=== PATIENT | male | born 1985 | race Caucasian/White ===

== ENCOUNTER 2024-11-20 18:01 | Inpatient (IN) | payer OTHER, SELFPAY ==
--- OUTSIDE RECORDS SUMMARY | 2024-11-19 12:59 | XMS_ITS | Encounter Summary ---
Author Organization [facility] Address [address] [place] [address] Care Team Providers Care Administrative Supervisor Name Role Phone Physician, Pcp Unknown Primary Care Provider Julianna vailable Reason for Visit * Reason Comments Detox Requesting detox Encounter Details Date Type Department Care Team (Late st Contact Info) Description 11/19/2024 12:59 PM EDT - 11/20/2024 7:06 PM EDT Emergency [facility] Emergency [address] [place] [id number] Kaden Reid MD [address] [place] [id number] Alice Magdaleno MD [address] [place] [id number] Dagoberto Burdick MD [address] [place] [address] Fredi Yu MD [address] [place] [id number] Discharge Disposition: Psychiatric Hospital Social History Tobacco Use Types Packs/Day Years Used Date Smoking Tobacco: Every Day Cigarettes Smokeless Tobacco: Never Tobacco Cessation:Ready to Q uit: Not Asked; Counseling Given: Not Answered Sex and Gender Information Value Date Recorded Sex Assigned at Not on file Legal Sex Male 5:44 AM EST Gender Identity Not on file Sexual Orientation Not on file documented as of this encounter Last Filed Vital Signs Vital Sign Reading Time Taken Comments Blood Pressure 114/88 11/20/2024 2:02 PM EDT Pulse 77 11/20/2024 2:02 PM EDT Temperature 36.7 C (98.1 F) 11/20/2024 2:02 PM EDT Respiratory Rate 18 11/20/2024 2:02 PM EDT Oxygen Saturation 100% 11/20/2024 2:02 PM EDT Inhaled Oxygen Concentration - - Weight 56.7 kg (125 lb) 11/19/2024 1:06 PM EDT Height 170.2 cm (5' 7 ) 11/19/2024 1:06 PM EDT Body Mass Index 19.58 11/19/2024 1:06 PM EDT documented in this encounter Functional Status * Are you deaf or do you have serious difficulty hearing? Answer Date of Assessment Author No 11/20/2024 2:40 PM EDT Avelina Quintana RN * Are you blind or do you have serious difficulty seeing, even when wearing glasses? Answer Date of Assessment Author No 11/20/2024 2:40 PM EDT Avelina Quintana RN * Do you have serious difficulty walking or climbing stairs? Answer Date of Assessment Author No 11/20/2024 2:40 PM EDT Avelina Quintana RN * Do you have serious difficulty dressing or bathing? Answer Date of Assessment Author No 11/20/2024 2:40 PM EDT Avelina Quintana RN * Because of a physical, mental, or emotional condition, do you have serious difficulty doing errandsalone such as visiting the doctor? Answer Date of Assessment Author No 11/20/2024 2:40 PM EDT Avelina Quintana RN * Calculated C-SSRS Risk Score (Lifetime/Recent) Answer Date of Assessment Author Moderate Risk 11/20/2024 7:30 AM EDT Domi Medina RN * [place] Suicide Severity Rating Scale (Screener/Recent Self-Report) Question Answer Date of Assessment Author 1. Wish to be (Past 1 Month) Yes 7:30 AM EDT Domi Medina RN 2. Non-Specific Active Suici tea Thoughts (Past 1 Month) Yes 11/20/2024 7:30 AM EDT Alton Medina, CLAUDE 3. Active Suicidal Ideation with any Methods (Not Plan) Without Intent to Act (Past 1 Month) No 11/20/2024 7:30 AM EDT Domi Medina, R N 4. Active Suicidal Ideation with Some Intent to Act, Without Specific Plan (Past 1 Month) No 11/20/2024 7:30 AM EDT Domi Medina R N 5. Active Suicidal Ideation with Specific Plan and Intent (Past 1 Month) No 11/20/2024 7:30 AM EDT Domi Medina R N 6. Suicidal Behavior (Lifetime) Yes 7:30 AM EDT Domi Medina, CLAUDE 6. Suicidal Behavior (3 Months) No 1:04 PM EDT Emely Salgado RN documented as of this encounter Mental Status * Because of a physical, mental, or emotional condition, do you have serious difficulty concentrating, remembering, or making decisions? (5 years old or older) Answer Entry Date Author No 11/20/2024 2:40 PM EDT Avelina Quintana RN documented in this encounter Discharge Disposition Disposition Code Departure Means Destination Comment s [facility] documented in this encounter Progress Notes * Manjeet Quintana RN - 11/20/2024 12:35 PM EDT Report called to Lisha RN at [facility], she requests that we call their unit at [phone] when the patient has been picked up. 1250: Unable to reserve transportation from [place] until 1730, transport booked and [facility] aware of this new time. * Fatemeh Estrada - 11/20/2024 11:53 AM EDT BED FOUND - Patient accepted to [facility], M5, by DR Grover for today 11/20/24 ; ETAset for 4pm * Dagoberto Burdick MD - 11/20/2024 10:09 AM EDT Etienne Key This patient was signed out to me by ED physician, Dr Magdaleno. Briefly, the patient presented to the ED with thoughts of self harm in the setting of polysubstance abuse. Signed out to me pending psych facility placement. EKG/Rhythm strip interpretation: normal sinus rhythm, HR 83bpm, narrow complex, no pathologic TWI, no significant ST segment deviation, no ectopy Reassessment: Accepted at [facility] * Alice Magdaleno MD - 11/20/2024 3:16 AM EDT This patient's care was signed out to me by the offgoing provider. Please see her/his note for further details regarding initial presentation, history of present illness, physical exam, and medical decision making. At time of signout, the following was pending: ED Course as of 11/20/24 0852 MonNov 20, 2024 0239 SO from : Hx of polysubstance abuse had suicidal ideas but no plan - wants to stop drug use. Medically cleared - however admission to psych hospital. Pending placement [EK] 0636 No acute needs during my shift. Patient's care was handed over to the oncoming provider. [EK] ED Course User Index [EK] Alice Magdaleno MD No orders to display Labs Reviewed ACETAMINOPHEN LEVEL - Abnormal Result Value Acetaminophen Level <2.0 (*) SALICYLATE LEVEL - Abnormal Salicylate Level 1.8 (*) DRUG ABUSE SCREEN 8A PANEL, URINE - Abnormal Amphetamine Screen, Ur Negative Barbiturate Screen, Ur Negative Benzodiazepine Screen, Ur Negative Cocaine Screen, Ur Positive (*) Opiate Screen, Ur Negative Cannabinoid (THC) Screen, Ur Positive (*) Oxycodone Screen, Ur Negative Fentanyl, Ur Negative Narrative: Assay cutoffs: Amphetamines 1000 ng/mL Barbiturates 200 ng/mL Benzodiazepines 200 ng/mL Cocaine 300 ng/mL Fentanyl 1 ng/mL Opiates 300 ng/mL Oxycodone 100 ng/mL THC 50 ng/mL Semi-quantitative assay for screening purposes only. Unconfirmed screening result should not be used for non-medical purposes. *ALTERNATE METHOD CONFIRMATION DONE UPON REQUEST ONLY* CBC WITH AUTO DIFFERENTIAL - Abnormal WBC 12.5 (*) RBC 5.10 Hemoglobin 14.3 Hematocrit 42.1 MCV 83.2 MCH 28.3 MCHC 34.0 RDW 12.5 Platelets 346 MPV 10.2 NRBC 0.0 NRBC Absolute 0.00 Neutrophils Relative 80.3 Lymphocytes Relative 14.7 Monocytes Relative 3.8 Eosinophils Relative 0.6 Basophils Relative 0.4 Immature Granulocytes Relative 0.2 Neutrophils Absolute 10.01 (*) Lymphocytes Absolute 1.83 Monocytes Absolute 0.48 Eosinophils Absolute 0.08 Basophils Absolute 0.05 Immature Granulocytes Absolute 0.03 COMPREHENSIVE METABOLIC PANEL - Normal Sodium 138 Potassium 4.3 Chloride 106 CO2 27 Anion Gap 5 Glucose 85 BUN 9 Creatinine 0.94 eGFR 106 BUN/Creatinine Ratio 9.6 Calcium 9.1 AST (SGOT) 18 ALT (SGPT) 19 Alkaline Phosphatase 54 Total Protein 6.8 Albumin 3.7 Total Bilirubin 1.0 ETHANOL - Normal Ethanol Level <3 BUPRENORPHINE SCREEN, URINE - Normal Buprenorphine Screen Urine Negative Narrative: Assay cutoff 5 ng/mL Semi-quantitative assay for screening purposes only. Unconfirmed screening result should not be used for non-medical purposes. *ALTERNATE METHOD CONFIRMATION DONE UPON REQUEST ONLY* PHENCYCLIDINE, URINE - Normal PCP Scrn, Ur Negative METHADONE SCREEN, URINE - Normal Methadone Screen, Urine Negative CBC AND DIFFERENTIAL Narrative: The following orders were created for panel order CBC and differential. Procedure Abnormality Status --------- ------ CBC auto differential[[id number]] Abnormal Final result Please view results for these tests on the individual orders. Clinical Impression(s): Final diagnoses: None Data Unavailable Previous Medications No medications on file * Emely Salgado RN - 11/19/2024 12:59 PM EDT Patient GISELA from home for attempt to detox from crack, pills and weed . States he used crack 35-40 minutes ago . Per patient to EMS, seeking detox. * SNEHA Noble - 11/19/2024 12:53 PM EDT HPI Chief Complaint Patient presents with Detox Requesting detox HPI history of polysubstance abuse presenting requesting detox from crack pills and weed stating helast used about 30 minutes prior to arrival. Also reporting suicidal ideations. Denies specific plan. Denies the drugs were and attempt at suicide. Denying HI hallucinations. No injuries or medical complaint. [place] Coma Scale Score: 15 Patient History Medical History[1] Surgical History[2] Family History[3] Social History Tobacco Use Smoking status: Every Day Types: Cigarettes Smokeless tobacco: Never Substance Use Topics Alcohol use: Not on file Drug use: Yes Types: Crack cocaine Comment: Last use 40 minutes ago Review of Systems Review of Systems Physical Exam ED Triage Vitals [11/19/24 1317] Temp Heart Rate Resp BP 36.8 ??C (98.2 ??F) 88 18 (!) 146/84 SpO2 Temp Source Heart Rate Source Patient Position 98 % Oral Left;Radial Lying BP Location FiO2 (%) Right arm;Upper -- Physical Exam GENERAL: Well developed, no acute distress HEENT: Normocephalic and atraumatic, EOMI NECK: Supple, trachea is midline RESP: No respiratory distress CARDIOVASCULAR: Regular rate GASTROINTESTINAL: Abdomen is soft, non distended MUSCULOSKELETAL: ROM normal, no obvious acute deformities SKIN: Warm and dry NEUROLOGIC: At baseline, no acute focal deficits PSYCHIATRIC: Calm and cooperative ED Course & MDM Medical Decision Making Encounter for polysubstance abuse seeking detox and psychiatric evaluation with suicidal ideations consideration for inpatient versus outpatient management Vital signs reviewed Pulse oximetry reviewed and found to be > 94% on room air Physical exam as above Nursing notes reviewed CBC negative for significant leukocytosis or anemia requiring blood transfusion Metabolic panel negative for significant electrolyte abnormality with no signs of acute organ dysfunction UA negative for obvious infection or gross blood Patient medically cleared Evaluated by crisis team who recommends inpatient services on an involuntary basis Care signed out to oncoming provider pending placement Procedures [1] History reviewed. No pertinent past medical history. [2] History reviewed. No pertinent surgical history. [3] No family history on file. SNEHA Noble 11/19/241813 Cosigned by Tenzin Gusman MD at 11/19/2024 9:58 PM EDT documented in this encounter Consult Notes * Maximo Ahmadi - 11/19/2024 3:27 PM EDTAssociated Order(s): IP CONSULT TO ADMISSIONS DEAN Images from the original note were not included. Behavioral Health Services - Crisis Assessment Important times Time of arrival: 12:59 Time of referral: 14:06 Time of readiness: 14:11 Time assessment started: 14:50 Time of disposition: 15:50 Location: Emergency Room (ER) Consulted case with: Varsha Ragland LCSW Insurance information: Insurance: Inpatient Services Only - [facility] Verified by: [facility] [place] - Maximo Ahmadi Reason for Consultation / Presenting Problem: Etienne Key is being seen today for a consultive service at the request of No att. providers found to assess risk and identify appropriate level of care. Patient initially arrived requesting detox but mentioned SI to the nurse, prompting a crisis evaluation. During assessment, patient reported that he attempted to kill himself last year by overdosing on fentanyl and that is his current plan. Patient discussed multiple life stressors including being unhoused and not being able to see his children. He reported that he is attempting to cope with his mental health by using substances. Patient expressed that he does not want to keep living like this and wants help. He reported that if he were to discharge he would obtain substances and attempt tooverdose. Patient reported that he thinks about hurting/killing people who have harmed him in the past but does not have any plan or immediate intent. He denied AH/VH. History of Present Illness: Etienne is a 39 y.o. male with Chief Complaint Patient presents with Detox Requesting detox Social/Educational History: Guardian - if Yes, provide contact information: No Anita Status: No State Agency Involvement: None Nathanael's Order: No Marital Status: Single Alternative Placement Details: None Living Situation for patient: Homeless - Patient reported that he is couch hopping. Household Members/Age: Patient is unhoused and does not live with anybody. Friendships/Family/Social Peer Support/Relationships: Patient reported to have a good relationship with his step-brother and sister. Highest level of education: High school Comments (Include Learning Needs): None Occupation: Unemployed Employment/Extracurricular Activities/Hobbies: Unknown Limitations of Daily Activities: None Strengths/Supports: Patient is help-seeking. Patient is able to access his basic needs. Patient is able to advocate for himself. Collaterals, contact information, and engagement level: Therapist: None reported Psychiatrist: None reported PCP: Unknown Family: Step-brother, Etienne SisterBre: - [facility] left voicemail requesting a call back. Other: None reported Mental Status Speech: WNL Eye Contact: WNL Motor Activity: Slowed Mood: Depressed Affect: Flat Sleep: Poor Appetite: Fair Memory: WNL Attention / Concentration: Mild Impairment Behavior: Cooperative and Calm Appearance: Hallucinations: None Delusions: None Thought Content: WNL SI: Presence HI: Presence - Vague/Passive Thought Process: WNL Orientation Impairment: None Insight: Fair Judgment: Fair Impulse Control: Poor Substance Use History (Including family history): Patient reported that he began using substances at 12 years old. He stated that he uses crack and sniffs cocaine daily - 120. Patient also reported to drinking alcohol socially. Patient reported that his mother's side of the family tends to use crack and heroin. Utox Results: Utox pending. BAL was normal. Substance Use Treatment History: Patient denied substance use treatment history. Mental Health Treatment History: Outpatient Mental Health Treatment: Patient denied current and history of outpatient mental health treatment. Previous or Current Psychological Diagnosis: Patient reported he has never had psychological diagnoses. Prior Psychiatric Hospitalizations/Residential Treatment Facilities: Patient denied history of psychiatric hospitalizations. Other Comments Regarding Mental Health Treatment History: None Mental Health Concerns in Family: Patient reported that he does not know as he was taken out of hismother's care at 4 years old. Trauma History: Patient was taken out of care of his family of origin at 4 years old. He is currently unable to seehis children and is using substances to cope. Patient is unhoused. Medications: Scheduled Meds: MEDSSCHEDULED[1] Continuous Infusions: MEDSCONTINUOUS[2] PRN Meds: MEDSPRN[3] Risk Assessment: Self-Harm: Past and With suicidal intent Suicidal Behavior: Past, Current, Ideation, Plan, and Intent Homicidal Behavior: None Physical Assault: None Physical Aggression: None Property Damage: None Verbal Aggression: None Family history of suicide: None reported Protective Factors: Patient is help-seeking. Patient is able to access his basic needs. Patient is able to advocate for himself. Risk Factors: Patient continues to use substances. Patient has unresolved trauma. Patient does not have outpatient mental health support. Patient is unhoused. Patient reported to having tried to overdose on fentanyl last year. Suicide Risk: Based on patient's history and current presentation, their level of risk for intentional lethal harm is considered High Safety Plan Completed: no No safety plan completed due to patient being a bed search. Interventions: Risk/crisis, active listening, empathetic listening, support Response to interventions: Patient was cooperative, engaged, and aligned with speaking with [facility]. DSM-5TR Diagnosis: F32.9 Unspecified Depressive Disorder F14.20 Stimulant Use Disorder, Cocaine, Moderate Plan: Based on the information above, patient would benefit from an involuntary inpatient psychiatric admission for safety and containment, mood stabilization, diagnostic evaluation, medication evaluation,therapeutic milieu, and coordination with outpatient and community supports. Patient would also benefit from stepping down to [facility] to work on his substance use. Recommendations were discussed with requesting provider. It was a pleasure to assist Etienne Key here at [facility]. This report is written and finalized by: Maximo Ahmadi Behavioral Health Specialist [facility] (Tel): [phone] / : [phone] [1] [2] [3] documented in this encounter Plan of Treatment Pending Results Name Type Priority Associated Diagnoses Date /Time ECG 12 lead ECG STAT 11/20/2024 10 :35 AM EDT documented as of this encounter Procedures Procedure Name Priority Date/Time Associated Diagnosis Comments ECG 12-LEAD STAT 11/20/2024 10:35 AM EDT CBC WITH AUTO DIFFERENTIAL STAT 11/19/2024 2:05 PM EDT CBC AND DIFFERENTIAL STAT 11/19/2024 2:05 PM EDT ETHANOL STAT 11/19/2024 2:05 PM EDT ACETAMINOPHEN LEVEL STAT 11/19/2024 2 :05 PM EDT SALICYLATE LEVEL STAT 11/19/2024 2:05 PM EDT COMPREHENSIVE METABOLIC PANEL STAT 11/19/2024 2:05 PM EDT DRUG ABUSE SCREEN 8A PANEL, URINE STAT 11/19/2024 1:58 PM EDT BUPRENORPHINE SCREEN, URINE STAT 11/19/2024 1:58 PM EDT METHADONE SCREEN, URINE STAT 11/19/2024 1:58 PM EDT PHENCYCLIDINE, URINE STAT 11/19/2024 1:58 PM EDT documented in this encounter Results * (ABNORMAL) CBC auto differential (11/19/2024 2:05 PM EDT) [facility] WBC 12.5(H) 4.8 - 10.8 K/mcL LAB HEMETOLOGY METHOD 11/19/2024 2:59 PM EDT [facility] RBC 5.10 4.50 - 5.50 M/mcL LAB HEMETOLOGY METHOD 11/19/2024 2:59 PM EDT [facility] Hemoglobin 14.3 13.5 - 17.5 g/dL LAB HEMETOLOGY METHOD 11/19/2024 2:59 PM EDT [facility] Hematocrit 42.1 42.0 - 54.0 % LAB HEMETOLOGY METHOD 11/19/2024 2:59 PM EDT [facility] MCV 83.2 79.0 - 98.0 FL LAB HEMETOLOGY METHOD 11/19/2024 2:59 PM EDT [facility] MCH 28.3 27.0 - 32.0 pcg LAB HEMETOLOGY METHOD 11/19/2024 2:59 PM EDT [facility] MCHC 34.0 32.0 - 37.0 g/dL LAB HEMETOLOGY METHOD 11/19/2024 2:59 PM EDT [facility] RDW 12.5 11.0 - 15.0 % LAB HEMETOLOGY METHOD 11/19/2024 2:59 PM EDT [facility] Platelets 346 130 - 400 K/mcL LAB HEMETOLOGY METHOD 11/19/2024 2:59 PM EDT [facility] MPV 10.2 7.0 - 11.0 FL LAB HEMETOLOGY METHOD 11/19/2024 2:59 PM EDT [facility] NRBC 0.0 <1.0 % LAB HEMETOLOGY METHOD 11/19/2024 2:59 PM EDT [facility] NRBC Absolute 0.00 <0.10 K/mcL LAB HEMETOLOGY METHOD 11/19/2024 2:59 PM EDT [facility] Neutrophils Relative 80.3 % LAB HEMETOLOGY METHOD 11/19/2024 2:59 PM EDT [facility] Lymphocytes Relative 14.7 % LAB HEMETOLOGY METHOD 11/19/2024 2:59 PM EDT [facility] Monocytes Relative 3.8 % [facility] Eosinophils Relative 0.6 % LAB HEMETOLOGY METHOD 11/19/2024 2:59 PM [facility] Basophils Relative 0.4 % LAB HEMETOLOGY METHOD 11/19/2024 2:59 PM EDT [facility] Immature Granulocytes Relative 0.2 % LAB HEMETOLOGY METHOD 11/19/2024 2:59 PM EDT [facility] Neutrophils Absolute 10.01(H) 1.50 - 7.00 K/mcL LAB HEMETOLOGY METHOD 11/19/2024 2:59 PM EDT [facility] Lymphocytes Absolute 1.83 1.00 - 5.00 K/mcL LAB HEMETOLOGY METHOD 11/19/2024 2:59 PM EDT [facility] Monocytes Absolute 0.48 0.20 - 1.00 K/mcL LAB HEMETOLOGY METHOD 11/19/2024 2:59 PM EDT [facility] Eosinophils Absolute 0.08 0.00 - 0.50 K/[facility] HEMETOLOGY METHOD 11/19/2024 2:59 PM EDT [facility] Basophils Absolute 0.05 0.00 - 0.20 K/[facility] LAB HEMETOLOGY METHOD 11/19/2024 2:59 PM EDT [facility] Immature Granulocytes Absolute 0.03 0.00 - 0.03 K/[facility] LAB HEMETOLOGY METHOD 11/19/2024 2:59 PM EDT [facility] Blood Venous blood specimen / Unknown Venipuncture / Unknown 11/19/2024 2:05 PM EDT 11/19/2024 2:48 PM EDT us Tenzin Gusman MD LAB BLOOD ORDERABLES Final Resul t Performing Organization Address [facility]/ZIP Co de Phone Number [facility] [address] [place] [address], [place] [phone] * (ABNORMAL) Salicylate level (11/19/2024 2:05 PM EDT) Salicylate Level 1.8(L) 2.0 - 29.0 mg/dL LAB CHEMISTRY METHOD 11/19/2024 3:20 PM EDT [facility] Blood Venous blood specimen / Unknown Venipuncture / Unknown 11/19/2024 2:05 PM EDT 11/19/2024 2:48 PM EDT us Tenzin Gusman MD LAB BLOOD ORDERABLES Final Resul t Performing Organization Address City/[facility]/ZIP Co de Phone Number [facility] [address] [place] [address], [place] [phone] * (ABNORMAL) Acetaminophen level (11/19/2024 2:05 PM EDT) Acetaminophen Level <2.0(L) 10.0 - 30.0 mcg/mL LAB CHEMISTRY METHOD 11/19/2024 3:22 PM EDT [facility] Blood Venous blood specimen / Unknown Venipuncture / Unknown 11/19/2024 2:05 PM EDT 11/19/2024 2:48 PM EDT us Tenzin Gusman MD LAB BLOOD ORDERABLES Final Resul t Performing Organization Address [facility]/ZIP Co de Phone Number [facility] [address] [place] [address], [place] [phone] * Ethanol (11/19/2024 2:05 PM EDT) Ethanol Level <3 0 - 10 mg/dL LAB CHEMISTRY METHOD 11/19/2024 3:20 PM EDT [facility] Blood Venous blood specimen / Unknown Venipuncture / Unknown 11/19/2024 2:05 PM EDT 11/19/2024 2:48 PM EDT us Tenzin Gusman MD LAB BLOOD ORDERABLES Final Resul t Performing Organization Address [facility]/ZIP Co de Phone Number [facility] [address] [place] [address], [place] [phone] * Comprehensive metabolic panel (11/19/2024 2:05 PM EDT) Sodium 138 133 - 145 mmol/L LAB CHEMISTRY METHOD 11/19/2024 4:08 PM EDT [facility] Potassium 4.3 3.5 - 5.5 mmol/L LAB CHEMISTRY METHOD 11/19/2024 4:08 PM EDT [facility] Chloride 106 96 - 110 mmol/L LAB CHEMISTRY METHOD 11/19/2024 4:08 PM EDT [facility] CO2 27 21 - 32 mmol/L LAB CHEMISTRY METHOD 11/19/2024 4:08 PM [facility] Anion Gap 5 3 - 11 LAB CHEMISTRY METHOD 11/19/2024 4:08 PM [facility] Glucose 85 70 - 100 mg/dL LAB CHEMISTRY METHOD 11/19/2024 4:08 PM [facility] BUN 9 5 - 25 mg/dL LAB CHEMISTRY METHOD 11/19/2024 4:08 PM [facility] Creatinine 0.94 0.70 - 1.30 mg/dL LAB CHEMISTRY METHOD 11/19/2024 4:08 PM [facility] eGFR 106 >=60 mL/min/1. 73m2 LAB CHEMISTRY METHOD 11/19/2024 4:08 PM [facility] Comment:Calculation based on the Chronic Kidney Disease Epidemiology Collaboration (CKD-EPI) equation refit without adjustment for race. BUN/Creatinine Ratio 9.6 LAB CHEMISTRY METHOD 11/19/2024 4:08 PM [facility] Calcium 9.1 8.5 - 10.5 mg/dL LAB CHEMISTRY METHOD 11/19/2024 4:08 PM [facility] AST (SGOT) 18 10 - 42 unit/L LAB CHEMISTRY METHOD 11/19/2024 4:08 PM [facility] ALT (SGPT) 19 10 - 60 unit/L LAB CHEMISTRY METHOD 11/19/2024 4:08 PM [facility] Alkaline Phosphatase 54 42 - 121 unit/L LAB CHEMISTRY METHOD 11/19/2024 4:08 PM [facility] Total Protein 6.8 6.0 - 8.0 g/dL LAB CHEMISTRY METHOD 11/19/2024 4:08 PM [facility] Albumin 3.7 3.2 - 5.0 g/dL LAB CHEMISTRY METHOD 11/19/2024 4:08 PM [facility] Total Bilirubin 1.0 0.0 - 1.4 mg/dL LAB CHEMISTRY METHOD 11/19/2024 4:08 PM EDT [facility] Blood Venous blood specimen / Unknown Venipuncture / Unknown 11/19/2024 2:05 PM EDT 11/19/2024 2:48 PM EDT us Tenzin Gusman MD LAB BLOOD ORDERABLES Final Resul t Performing Organization Address [facility] Co de Phone Number [facility] [address], [place] , [place] [phone] * Methadone, urine (11/19/2024 1:58 PM EDT) Methadone Screen, Urine Negative Negative LAB CHEMISTRY METHOD 11/19/2024 4:12 PM EDT [facility] Comment: Assay cutoff 300 ng/mL Semi-quantitative assay for screening purposes only. Unconfirmed screening result should not be used for non-medical purposes. *ALTERNATE METHOD CONFIRMATION DONE UPON REQUEST ONLY* Urine Urine specimen obtained by clean catch procedure / Unknown Non-blood Collection / Unknown 11/19/2024 1:58 PM EDT 11/19/2024 2:49 PM EDT us Tenzin Gusman MD LAB URINE ORDERABLES Final Resul t Performing Organization Address [facility] Co de Phone Number [facility] [address] [place] [address], [place] [phone] * Phencyclidine, urine (11/19/2024 1:58 PM EDT) PCP Scrn, Ur Negative Negative LAB CHEMISTRY METHOD 11/19/2024 4:09 PM EDT [facility] Comment: Assay cutoff 25 ng/mL Semi-quantitative assay for screening purposes only. Unconfirmed screening result should not be used for non-medical purposes. *ALTERNATE METHOD CONFIRMATION DONE UPON REQUEST ONLY* Urine Urine specimen obtained by clean catch procedure / Unknown Non-blood Collection / Unknown 11/19/2024 1:58 PM EDT 11/19/2024 2:49 PM EDT us Tenzin Gusman MD LAB URINE ORDERABLES Final Resul t Performing Organization Address [facility] de Phone Number [facility] [address] [place] [address], [place] [phone] * Buprenorphine screen, urine (11/19/2024 1:58 PM EDT) [facility] Buprenorphine Screen Urine Negative Negative LAB CHEMISTRY METHOD 11/19/2024 4:09 PM EDT [facility] Urine Urine specimen obtained by clean catch procedure / Unknown Non-blood Collection / Unknown 11/19/2024 1:58 PM EDT 11/19/2024 2:49 PM EDT Narrative [facility] - 11/19/2024 4:09 PM EDT Assay cutoff 5 ng/mL Semi-quantitative assay for screening purposes only. Unconfirmed screening result should not be used for non-medical purposes. *ALTERNATE METHOD CONFIRMATION DONE UPON REQUEST ONLY* us Tenzin Gusman MD LAB URINE ORDERABLES Final Resul t Performing Organization Address [facility] de Phone Number [facility] [address] [place] [address], [place] [phone] * (ABNORMAL) Drug abuse screen 8a panel, urine (11/19/2024 1:58 PM EDT) [facility] Amphetamine Screen, Ur Negative Negative LAB CHEMISTRY METHOD 4:09 PM EDT [facility] Comment:Certain OTC medicati ons containing ephedrine, phenylephrine, pseudoephedrine and phenylpropanolamine can cause false positive results. Barbiturate Screen, Ur Negative Negative LAB CHEMISTRY METHOD 5 4:09 PM EDT [facility] Benzodiazepine Screen, Ur Negative Negative LAB CHEMISTRY METHOD 4:09 PM EDT [facility] Cocaine Screen, Ur Positive(A ) Negative LAB CHEMISTRY METHOD 5 4:09 PM EDT [facility] Opiate Screen, Ur Negative Negative LAB CHEMISTRY METHOD 5 4:09 PM T [facility] Cannabinoid (THC) Screen, Ur Positive(A ) Negative LAB CHEMISTRY METHOD 5 4:09 PM EDT [facility] Comment:Specimens from patie nts taking pantoprazole sodium (Protonix) have been shown to produce false positive results. Oxycodone Screen, Ur Negative Negative LAB CHEMISTRY METHOD 5 4:09 PM EDT [facility] Fentanyl, Ur Negative Negative LAB CHEMISTRY METHOD 5 4:09 PM [facility] Urine Urine specimen obtained by clean catch procedure / Unknown Non-blood Collection / Unknown 11/19/2024 1:58 PM EDT 11/19/2024 2:49 PM EDT Narrative [facility] - 11/19/2024 4:09 PM EDT Assay cutoffs: Amphetamines 1000 ng/mL Barbiturates 200 ng/mL Benzodiazepines 200 ng/mL Cocaine 300 ng/mL Fentanyl 1 ng/mL Opiates 300 ng/mL Oxycodone 100 ng/mL THC 50 ng/mL Semi-quantitative assay for screening purposes only. Unconfirmed screening result should not be used for non-medical purposes. *ALTERNATE METHOD CONFIRMATION DONE UPON REQUEST ONLY* us Tenzin Gusman MD LAB URINE ORDERABLES Final Resul t [facility]) [facility] [address] [place] [address], documented in this encounter Visit Diagnoses Not on filedocumented in this encounter Orders Diet Count Last Ordered Date First Orde red Date ADULT DIET 1 11/20/2024 Consult Count Last Ordered Date First Orde red Date IP CONSULT TO ADDICTION MEDICINE 1 11/20/19 25 IP CONSULT TO ADMISSIONS DEAN 1 11/19/2024 Precaution Count Last Ordered Date First Orde red Date SUICIDE PRECAUTIONS 1 11/19/2024 Privilege Level Count Last Ordered Date First O rdered Date PATIENT WAFER POLISHER 1 11/19/2024 documented in this encounter Care Teams Administrative Supervisor Relationship Specialty Start Date End Date Physician, Pcp Unknown PCP - General 09/26/24 documented as of this encounter
[2024-11-20 18:21] VITALS: BP 123/91; PULSE 64; RESP 18; TEMP 37.1; O2SAT 99
[2024-11-20 18:22] VITALS: BMI 18.7
--- OUTSIDE RECORDS SUMMARY | 2024-11-20 19:36 | XMS_ITS | Patient Health Record ---
Author Organization [facility] Address [address] [place] [address] Care Team Providers Care Fresh Work Inspector Name Role Phone NO, PCP Primary Care Provider [facility] Unavailable [phone] Reason For Referral No Information Plan Of Treatment No Information Insurance Providers Payer Name Payer Address Payer Phone Subscriber Number Group Number Insured Name Patient Relationship to Insured Coverage Start Date Coverage End Date Insurance Pending [address] [place] [address] Etienne Key Self - patient is the insured 2
--- OUTSIDE RECORDS SUMMARY | 2024-11-20 19:36 | XMS_ITS | Clinical Summary ---
Author Organization [facility] Address [address] [place] [address] Phone Care Team Providers Care Res Counselor Name Role Phone Physician, Pcp Unknown Primary Care Provider Julianna vailable Allergies No known active allergies Medications No known medications Active Problems No known active problems Encounters Date Type Department Care Team Description 11/19/2024 12:59 PM EDT - 11/20/2024 7:06 PM EDT Emergency [facility] Emergency [address] [place] [id number] Kaden Reid MD Kokkinos, Erika, MD Wyman, Tim, MD Amardey-Wellingto n, Aaron, MD Discharge Disposition: [facility] 09/26/2024 8:22 AM EDT - 09/26/2024 9:02 AM EDT Emergency [facility] Emergency [address] [place] [phone] Dysuria (Primary Dx) Discharge Disposition: Home or Self Care from Last 3 Months Social History Tobacco Use Types Packs/Day Years Used Date Smoking Tobacco: Every Day Cigarettes Smokeless Tobacco: Never Tobacco Cessation:Ready to Q uit: Not Asked; Counseling Given: Not Answered Sex and Gender Information Value Date Recorded Sex Assigned at Not on file Legal Sex Male 5:44 AM EST Gender Identity Not on file Sexual Orientation Not on file Obstetrics History Last Filed Vital Signs Vital Sign Reading [...] Mass Index 19.58 11/19/2024 1:06 PM EDT Plan of Treatment Health Maintenance Due Date Last Done Comments Pneumococcal Vaccine: Pediatrics (0 to 5 Years) and At-Risk Patients (6 to 49 Years) (1 of 2 - PCV) 2004 HPV Vaccines (1 - 3-dose SCDM series) 2012 Depression Screening 02/07/2024 Cholesterol Screening (Lipid Panel) 09/26/2024 HIV Screening 09/26/2024 Hepatitis C Screening 09/26/2024 Social Influencers of Health Screening 09/26/2024 COVID-19 Vaccine ( - season) 2024 Influenza Vaccine (#1) 2024 DTaP,Tdap,and Td Vaccines (8 - Td or Tdap) 12/03/2027 12/02/2017, 09/18/2000, 07/04/1991, Additional history exists RSV Immunization Adult Patients (1 - 1-dose 75+ series) 2060 HIB Vaccines Completed 02/02/1987 MMR Vaccines Completed 07/04/1991, 09/02/1986 IPV Vaccines Completed 09/18/2000, 06/07, 07/04/1987, Additional history exists Hepatitis B Vaccines Completed 01/11/2002, 12/27/2000, 09/18/2000 Hepatitis A Vaccines Aged Out No long er eligible based on patient's age to complete this topic Meningococcal ACWY Vaccine Aged Out N o longer eligible based on patient's age to complete this topic Meningococcal B Vaccine Aged Out No l onger eligible based on patient's age to complete this topic RSV Immunization Patients Under 20 months Aged Out No longer eligible based on patient's age to complete this topic Varicella Vaccines Aged Out No longer eligible based on patient's age to complete this topic Procedures Procedure Name Priority Date/Time Associated Diagnosis Comments ECG 12-LEAD STAT 11/20/2024 10:35 AM EDT CBC WITH AUTO DIFFERENTIAL STAT 11/19/2024 2:05 PM EDT SALICYLATE LEVEL STAT 11/19/2024 2:05 PM EDT ACETAMINOPHEN LEVEL STAT 11/19/2024 2 :05 PM EDT ETHANOL STAT 11/19/2024 2:05 PM EDT COMPREHENSIVE METABOLIC PANEL STAT 11/19/2024 2:05 PM EDT CBC AND DIFFERENTIAL STAT 11/19/2024 2:05 PM EDT METHADONE SCREEN, URINE STAT 11/19/2024 1:58 PM EDT PHENCYCLIDINE, URINE STAT 11/19/2024 1:58 PM EDT BUPRENORPHINE SCREEN, URINE STAT 11/19/2024 1:58 PM EDT DRUG ABUSE SCREEN 8A PANEL, URINE STAT 11/19/2024 1:58 PM EDT HARDY URINE CULTURE TUBE STAT 09/26/2024 8:27 AM EDT URINALYSIS WITH REFLEX MICROSCOPIC AND CULTURE STAT 09/26/2024 8:27 AM EDT URINALYSIS WITH REFLEX MICROSCOPIC AND CULTURE STAT 09/26/2024 8:27 AM EDT CULTURE URINE STAT 09/26/2024 8:27 AM EDT CHLAMYDIA TRACHOMATIS AND NEISSERIA GONORRHOEAE PCR STAT 09/26/2024 8:27 AM EDT from Last 3 Months Results * (ABNORMAL) CBC auto differential (11/19/2024 2:05 PM EDT) [facility] Signature WBC 12.5(H) 4.8 - 10.8 K/[facility] LAB HEMETOLOGY METHOD 11/19/2024 2:59 PM EDT [facility] RBC 5.10 4.50 - 5.50 M/mcL LAB HEMETOLOGY METHOD 11/19/2024 2:59 PM EDT [facility] Hemoglobin 14.3 13.5 - 17.5 g/dL LAB HEMETOLOGY METHOD 11/19/2024 2:59 PM EDT [facility] Hematocrit 42.1 42.0 - 54.0 % LAB HEMETOLOGY METHOD 11/19/2024 2:59 PM EDT [facility] MCV 83.2 79.0 - 98.0 FL LAB HEMETOLOGY METHOD 11/19/2024 2:59 PM EDT [facility] MCH 28.3 27.0 - 32.0 pcg LAB HEMETOLOGY METHOD 11/19/2024 2:59 PM EDT [facility] MCHC 34.0 32.0 - 37.0 g/dL LAB HEMETOLOGY METHOD 11/19/2024 2:59 PM EDT [facility] RDW 12.5 11.0 - 15.0 % LAB HEMETOLOGY METHOD 11/19/2024 2:59 PM EDT [facility] Platelets 346 130 - 400 K/mcL LAB HEMETOLOGY METHOD 11/19/2024 2:59 PM EDT [facility] MPV 10.2 7.0 - 11.0 FL LAB HEMETOLOGY METHOD 11/19/2024 2:59 PM EDT [facility] NRBC 0.0 <1.0 % LAB HEMETOLOGY METHOD 11/19/2024 2:59 PM EDT [facility] NRBC Absolute 0.00 <0.10 K/mcL LAB HEMETOLOGY METHOD 11/19/2024 2:59 PM EDT [facility] Neutrophils Relative 80.3 % LAB HEMETOLOGY METHOD 11/19/2024 2:59 PM EDT [facility] Lymphocytes Relative 14.7 % LAB HEMETOLOGY METHOD 11/19/2024 2:59 PM EDT [facility] Monocytes Relative 3.8 % LAB HEMETOLOGY METHOD 11/19/2024 2:59 PM EDT [facility] Eosinophils Relative 0.6 % LAB HEMETOLOGY METHOD 11/19/2024 2:59 PM EDT [facility] Basophils Relative 0.4 % LAB HEMETOLOGY METHOD 11/19/2024 2:59 PM EDT [facility] Immature Granulocytes Relative 0.2 % LAB HEMETOLOGY METHOD 11/19/2024 2:59 PM EDT [facility] Neutrophils Absolute 10.01(H) 1.50 - 7.00 K/mcL LAB HEMETOLOGY METHOD 11/19/2024 2:59 PM EDT [facility] Lymphocytes Absolute 1.83 1.00 - 5.00 K/mcL LAB HEMETOLOGY METHOD 11/19/2024 2:59 PM EDT [facility] Monocytes Absolute 0.48 0.20 - 1.00 K/mcL LAB HEMETOLOGY METHOD 11/19/2024 2:59 PM EDT [facility] Eosinophils Absolute 0.08 0.00 - 0.50 K/mcL LAB HEMETOLOGY METHOD 11/19/2024 2:59 PM EDT [facility] Basophils Absolute 0.05 0.00 - 0.20 K/mcL LAB HEMETOLOGY METHOD 11/19/2024 2:59 PM EDT [facility] Immature Granulocytes Absolute 0.03 0.00 - 0.03 K/mcL LAB HEMETOLOGY METHOD 11/19/2024 2:59 PM EDT [facility] Blood Venous blood specimen / Unknown Venipuncture / Unknown 11/19/2024 2:05 PM EDT 11/19/2024 2:48 PM EDT us Tenzin Gusman MD LAB BLOOD ORDERABLES Final Resul t [facility] [address] [place] [address], [place] [phone] * Ethanol (11/19/2024 2:05 PM EDT) Ethanol Level <3 0 - 10 mg/dL LAB CHEMISTRY METHOD 11/19/2024 3:20 PM EDT [facility] Blood Venous blood specimen / Unknown Venipuncture / Unknown 11/19/2024 2:05 PM EDT 11/19/2024 2:48 PM EDT us Tenzin Gusman MD LAB BLOOD ORDERABLES Final Resul t Performing Organization Address City/[facility]/ZIP Co de Phone Number [facility] [address] [place] [address], [place] [phone] * (ABNORMAL) Acetaminophen level (11/19/2024 2:05 PM EDT) Acetaminophen Level <2.0(L) 10.0 - 30.0 mcg/mL LAB CHEMISTRY METHOD 11/19/2024 3:22 PM EDT [facility] Blood Venous blood specimen / Unknown Venipuncture / Unknown 11/19/2024 2:05 PM EDT 11/19/2024 2:48 PM EDT us Tenzin Gusman MD LAB BLOOD ORDERABLES Final Resul t [facility] [address] [place] [address], [place] [phone] * (ABNORMAL) Salicylate level (11/19/2024 2:05 PM EDT) Salicylate Level 1.8(L) 2.0 - 29.0 mg/dL LAB CHEMISTRY METHOD 11/19/2024 3:20 PM EDT [facility] Blood Venous blood specimen / Unknown Venipuncture / Unknown 11/19/2024 2:05 PM EDT 11/19/2024 2:48 PM EDT us Tenzin Gusman MD LAB BLOOD ORDERABLES Final Resul t [facility] [address] [place] [address], [place] [phone] * Comprehensive metabolic panel (11/19/2024 2:05 PM EDT) Sodium 138 133 - 145 mmol/L LAB CHEMISTRY METHOD 11/19/2024 4:08 PM [facility] Potassium 4.3 3.5 - 5.5 mmol/L LAB CHEMISTRY METHOD 11/19/2024 4:08 PM [facility] Chloride 106 96 - 110 mmol/L LAB CHEMISTRY METHOD 11/19/2024 4:08 PM [facility] CO2 27 21 - 32 mmol/L LAB CHEMISTRY METHOD 11/19/2024 4:08 PM [facility] Anion Gap 5 3 - 11 LAB CHEMISTRY METHOD 11/19/2024 4:08 PM [facility] Glucose 85 70 - 100 mg/dL LAB CHEMISTRY METHOD 11/19/2024 4:08 PM [facility] BUN 9 5 - 25 mg/dL LAB CHEMISTRY METHOD 11/19/2024 4:08 PM [facility] Creatinine 0.94 0.70 - 1.30 mg/dL LAB CHEMISTRY METHOD 11/19/2024 4:08 PM [facility] eGFR 106 >=60 mL/min/1. 73m2 LAB CHEMISTRY METHOD 11/19/2024 4:08 PM [facility] Comment:Calculation based on the Chronic Kidney Disease Epidemiology Collaboration (CKD-EPI) equation refit without adjustment for race. BUN/Creatinine Ratio 9.6 LAB CHEMISTRY METHOD 11/19/2024 4:08 PM [facility] Calcium 9.1 8.5 - 10.5 mg/dL LAB CHEMISTRY METHOD 11/19/2024 4:08 PM EDT [facility] AST (SGOT) 18 10 - 42 unit/L LAB CHEMISTRY METHOD 11/19/2024 4:08 PM EDT [facility] ALT (SGPT) 19 10 - 60 unit/L LAB CHEMISTRY METHOD 11/19/2024 4:08 PM EDT [facility] Alkaline Phosphatase 54 42 - 121 unit/L LAB CHEMISTRY METHOD 11/19/2024 4:08 PM EDT [facility] Total Protein 6.8 6.0 - 8.0 g/dL LAB CHEMISTRY METHOD 11/19/2024 4:08 PM [facility] Albumin 3.7 3.2 - 5.0 g/dL LAB CHEMISTRY METHOD 11/19/2024 4:08 PM EDT [facility] Total Bilirubin 1.0 0.0 - 1.4 mg/dL LAB CHEMISTRY METHOD 11/19/2024 4:08 PM T [facility] Blood Venous blood specimen / Unknown Venipuncture / Unknown 11/19/2024 2:05 PM EDT 11/19/2024 2:48 PM EDT us Tenzin Gusman MD LAB BLOOD ORDERABLES Final Resul t [facility] [address] [place] [address], * (ABNORMAL) Drug abuse screen 8a panel, urine (11/19/2024 1:58 PM EDT) Amphetamine Screen, Ur Negative Negative LAB CHEMISTRY METHOD 4:09 PM EDT [facility] Comment:Certain OTC medicati ons containing ephedrine, phenylephrine, pseudoephedrine and phenylpropanolamine can cause false positive results. Barbiturate Screen, Ur Negative Negative LAB CHEMISTRY METHOD 10/14/202 5 4:09 PM EDT [facility] Benzodiazepine Screen, Ur Negative Negative LAB CHEMISTRY METHOD 5 4:09 PM EDT [facility] Cocaine Screen, Ur Positive(A ) Negative LAB CHEMISTRY METHOD 5 4:09 PM EDT [facility] Opiate Screen, Ur Negative Negative LAB CHEMISTRY METHOD 5 4:09 PM EDT [facility] Cannabinoid (THC) Screen, Ur Positive(A ) Negative LAB CHEMISTRY METHOD 5 4:09 PM EDT [facility] Comment:Specimens from patie nts taking pantoprazole sodium (Protonix) have been shown to produce false positive results. Oxycodone Screen, Ur Negative Negative LAB CHEMISTRY METHOD 5 4:09 PM EDT [facility] Fentanyl, Ur Negative Negative LAB CHEMISTRY METHOD 5 4:09 PM EDT [facility] Urine Urine specimen obtained by clean catch procedure / Unknown Non-blood Collection / Unknown 11/19/2024 1:58 PM EDT 11/19/2024 2:49 PM EDT Narrative [facility] - 11/19/2024 4:09 PM EDT [...] MD LAB URINE ORDERABLES Final Resul t [facility] [address] [place] [address], * Buprenorphine screen, urine (11/19/2024 1:58 PM EDT) [facility] Buprenorphine Screen Urine Negative Negative LAB CHEMISTRY METHOD 11/19/2024 4:09 PM EDT [facility] Urine Urine specimen obtained by clean catch procedure / Unknown Non-blood Collection / Unknown 11/19/2024 1:58 PM EDT 11/19/2024 2:49 PM EDT Narrative [facility] - 11/19/2024 4:09 PM EDT Assay cutoff 5 ng/mL Semi-quantitative assay for screening purposes only. Unconfirmed screening result should not be used for non-medical purposes. *ALTERNATE METHOD CONFIRMATION DONE UPON REQUEST ONLY* us Tenzin Gusman MD LAB URINE ORDERABLES Final Resul t Performing Organization Address [facility] de Phone Number [facility] [address] [place] [address], [place] [phone] * Methadone, urine (11/19/2024 1:58 PM EDT) [facility] Methadone Screen, Urine Negative Negative LAB CHEMISTRY METHOD 11/19/2024 4:12 PM EDT [facility] Comment: Assay cutoff 300 ng/mL [...] ORDERABLES Final Resul t Performing Organization Address [facility]/ZIP Co de Phone Number [facility] [address] [place] [address], [place] [phone] * Phencyclidine, urine (11/19/2024 1:58 PM EDT) [facility] PCP Scrn, Ur Negative Negative LAB CHEMISTRY METHOD 11/19/2024 4:09 PM [facility] Comment: Assay cutoff 25 ng/mL Semi-quantitative assay for screening purposes only. Unconfirmed screening result should not be used for non-medical purposes. *ALTERNATE METHOD CONFIRMATION DONE UPON REQUEST ONLY* Urine Urine specimen obtained by clean catch procedure / Unknown Non-blood Collection / Unknown 11/19/2024 1:58 PM EDT 11/19/2024 2:49 PM EDT us Tenzin Gusman MD LAB URINE ORDERABLES Final Resul t [facility] [address] [place] [address], [place] [phone] * (ABNORMAL) Urinalysis with reflex microscopic and culture (09/26/2024 8:27 AM EDT) Specific [place] Urine 1.019 1.003 - 1.030 LAB URINALYSIS - AUTOMATED METHOD 09/26/2024 9:23 AM [facility] pH, Urine 7.5 5.0 - 8.0 pH LAB URINALYSIS - AUTOMATED METHOD 09/26/2024 9:23 AM [facility] Leukocytes, Urine Large(A) Negative LAB URINALYSIS - AUTOMATED METHOD 09/26/2024 9:23 AM [facility] Nitrite, Urine Negative Negative LAB URINALYSIS - AUTOMATED METHOD 09/26/2024 9:23 AM [facility] Protein, Urine 30(A) <=Trace mg/dL LAB URINALYSIS - AUTOMATED METHOD 09/26/2024 9:23 AM [facility] Glucose, Urine Negative Negative mg/dL LAB URINALYSIS - AUTOMATED METHOD 09/26/2024 9:23 AM [facility] Ketones, Urine Negative Negative mg/dL LAB URINALYSIS - AUTOMATED METHOD 09/26/2024 9:23 AM [facility] Urobilinogen, Urine 1.0 0.2 - 1.0 mg/dL LAB URINALYSIS - AUTOMATED METHOD 09/26/2024 9:23 AM [facility] Bilirubin, Urine Negative Negative LAB URINALYSIS - AUTOMATED METHOD 09/26/2024 9:23 AM [facility] Blood, Urine Small(A) Negative LAB URINALYSIS - AUTOMATED METHOD 09/26/2024 9:23 AM [facility] RBC, Urine 16.5(H) 0 - 4 /HPF LAB URINALYSIS - AUTOMATED METHOD 09/26/2024 9:23 AM [facility] WBC, Urine 779.3(H) 0 - 4 /HPF LAB URINALYSIS - AUTOMATED METHOD 09/26/2024 9:23 AM [facility] Squamous Epithelial, Urine 1 0 - 60 /LPF LAB URINALYSIS - AUTOMATED METHOD 09/26/2024 9:23 AM [facility] Bacteria, Urine Few(A) Negative /HPF LAB URINALYSIS - AUTOMATED METHOD 09/26/2024 9:23 AM [facility] Hyaline Casts, Urine 0.8 0 - 3 /LPF LAB URINALYSIS - AUTOMATED METHOD 09/26/2024 9:23 AM [facility] Urine Urine specimen obtained by clean catch procedure / Unknown Non-blood Collection / Unknown 09/26/2024 8:27 AM EDT 09/26/2024 8:39 AM EDT us Ben HOOVER LAB URINE ORDERABLES Final Result [facility] [address] [place] [address], * Hardy urine culture tube (09/26/2024 8:27 AM EDT) Extra Tube Hold for add-ons. 09/26/2024 10:01 AM T [facility] Comment:Auto resulted. Urine Urine specimen obtained by clean catch procedure / Unknown Non-blood Collection / Unknown 09/26/2024 8:27 AM EDT 09/26/2024 8:39 AM EDT us Ben HOOVER LAB URINE ORDERABLES Final Result Performing Organization Address [facility]/ZIP Co de Phone Number [facility] [address] [place] [address], [place] [phone] * (ABNORMAL) Chlamydia trachomatis and Neisseria gonorrhoeae molecular study (09/26/2024 8:27 AM EDT) Pathologist [facility] Neisseria gonorrhoeae PCR Positive(A) Negative LAB MOLECULAR DIAGNOSTICS METHOD 09/26/2024 11:38 AM EDT [facility] Chlamydia trachomatis PCR Negative Negative LAB MOLECULAR DIAGNOSTICS METHOD 09/26/2024 11:38 AM EDT [facility] Urine Urine specimen from urethra / Unknown Non-blood Collection / Unknown 09/26/2024 8:27 AM EDT 09/26/2024 8:39 AM EDT us Ben HOOVER LAB MICROBIOLOGY - GENERAL ORDERABLES Final Result Performing Organization Address [facility] de Phone Number [facility] [address] [place] [address], [place] [phone] * Culture urine (09/26/2024 8:27 AM EDT) Pathologist [facility] Culture, Urine No growth 09/27/2024 9:56 AM EDT [facility] Urine Urine specimen obtained by clean catch procedure / Unknown Non-blood Collection / Unknown 09/26/2024 8:27 AM EDT 09/26/2024 9:23 AM EDT us Ben HO[facility] LAB MICROBIOLOGY - GENERAL ORDERABLES Final Result Performing Organization Address City/[facility]/ZIP Co de Phone Number [facility] [address] [place] [address], [place] [phone] from Last 3 Months Insurance [place]ICA[place] Care Teams Res Counselor Relationship Specialty Start Date End Date Physician, Pcp Unknown PCP - General 09/26/24
[2024-11-20 20:04] VITALS: BP 135/83; PULSE 73; RESP 18; TEMP 36.8; O2SAT 99
--- NOTE | 2024-11-20 23:54 | PC.ADMIT ---
Patient is a 39 years old male who arrived on the unit at 1815 hours from [facility]. He signed a CV with the provider. Skin check was unremarkable. Patient was oriented to the unit, placed on 15 minutes safety checks. Per transfer report, patient came to the hospital on 11/19/24 and requested detox from Cocaine assistance. During the assessment, patient mentioned a history of having suicidal ideation. He has multiple diagnosis including Major Depression Disorder and Cocaine use disorder. No medical diagnosis. Labs were completed and Utox was positive for Cocaine. Medication reconciliation completed. Patient is not currently taking any medications. He does not have any food or drug allergies.
[2024-11-21 08:00] VITALS: BP 131/74; PULSE 65; RESP 18; TEMP 36.6; O2SAT 99
--- NOTE | 2024-11-21 08:26 | HO.PM.IMCN ---
History of Present Illness Data of Consult Service Date: 11/21/24 Primary Care Provider: Unknown Physician HPI Reason for consult: Medical consult 39-year-old male with no significant past medical history presented to [facility] with polysubstance abuse requesting detox and he also presented with suicidal ideations. Initial workup revealed normal vital signs, normal physical exam, CBC negative for leukocytosis or anemia, metabolic panel negative for electrolyte imbalances or organ dysfunction, UA was negative for infection he was medically cleared and deemed appropriate for inpatient psychiatric care for further care. On exam he denies any medical concerns. Review of Systems Review of Systems: Denies any shortness of breath, chest pain, palpitations, dizziness, lightheadedness, headaches, dysuria, abdominal pain or discomfort, nausea, vomiting or diarrhea. Denies chills, body aches, muscle aches, fatigue or weight loss. PMFSH Social History Household Members: None Housing: Homeless Do you presently have visiting nurse or other home services: No Patient Tobacco Use Status: Current everyday Tobacco user Tobacco use type: Cigarette Cigarette Packs Per Day: 1 Cigarettes Per Day: 20.0 Smoked in Last 30 Days: Yes e-Cigarette/Vaping Use: Never Used Frequency of e-Cigarette/Vaping Use: never Patient Interested in Nicotine Replacement: Yes Patient Given Instructions on How to Stop Smoking: Yes Date Education Initiated: 11/20/24 Second Hand Smoke Exposure: No Currently Displaying Signs/Symptoms of Drug Intoxication Withdrawal: No Have you been hit, kicked, punched, or otherwise hurt by someone within the past year? If so, by whom?: No Do you feel safe in your current relationship?: No Current Relationship Is there a partner from a previous relationship who is making you feel unsafe now?: No Are you made to feel afraid or neglected: No Advance Directives: No Advance Directives Information Provided: No Do you have thoughts of harming others: None Do you have a plan to hurt others: No Plan Recently lost weight without trying: No How much weight loss: Not applicable Eating poorly because of decreased appetite: No Nutrition screen score: 0 Nutrition Risks: No Nutritional Risk Poor oral hygiene: No service: No Sexual orientation: Straight/Heterosexual Meds Allergies Allergy/AdvReac Type Severity Reaction Status Date / Time No Known Allergies (No Known Allergy Unverified 10/24/19 17:23 Allergies*) Active Medications: Current Medications Acetaminophen (Acetaminophen 325 Mg Tablet) 650 mg PO Q6H PRN PRN Reason: Headache/Pain, Scale 1-10 Al Hydroxide/Mg Hydroxide (Magnesium Hydrox/Alum Hydrox 30 Ml Oral.Susp) 30 ml PO Q6H PRN PRN Reason: Heartburn/Nausea Clonidine HCl (Clonidine Hcl 0.1 Mg Tablet) 0.1 mg PO Q4H PRN; Protocol PRN Reason: ANXIETY RELATED TANNER W/D Hydroxyzine HCl (Hydroxyzine Hcl 25 Mg Tablet) 25 mg PO Q6H PRN PRN Reason: mild anxiety Magnesium Hydroxide (Milk Of Magnesia 30 Ml Oral.Susp) 30 ml PO DAILY PRN PRN Reason: Constipation Nicotine (Nicotine 21 Mg Patch.Td24) 21 mg TRANSDERMA DAILY PRN PRN Reason: nicotine craving Nicotine Polacrilex (Nicotine Polacrilex 2 Mg Gum) 2 mg BUCCAL Q2H PRN PRN Reason: Nicotine Cravings Olanzapine (Olanzapine 5 Mg Tablet) 5 mg PO BID PRN PRN Reason: agitation Trazodone HCl (Trazodone Hcl 50 Mg Tablet) 50 mg PO BEDTIME MRX1 PRN PRN Reason: Insomnia Home Medications ?Medication ?Instructions ?Recorded ?Confirmed ?Last Taken ?Type No Known Home Meds 11/20/24 11/20/24 Unknown History Physical Exam Vital Signs and Narrative: Vital Signs: Last Vital Signs Temp 97.9 F 11/21/24 08:00 Pulse 65 11/21/24 08:00 Resp 18 11/21/24 08:00 BP 131/74 11/21/24 08:00 Pulse Ox 99 11/21/24 08:00 O2 Del Method Room Air 11/21/24 08:00 BMI result Body Mass Index 18.7 CONST: Alert and oriented, in NAD. Well nourished HEENT: Normocephalic, atraumatic, MMM, Eyes clear, Neck supple RESP: Lungs clear, RRR even and regular HEART:,RRR, S1, S2. No edema GI:Abdomen Soft NT, ND. + BS times four :Deferred SKIN: Warm dry and intact, no visible lesions or rashes NEURO:CN II-XII Intact bilaterally, Sensation intact. Speech clear PSYCH: Normal affect Results Labs 11/21/24 08:35 Assessment and Plan (1) Polysubstance abuse: Status: Acute Plan 39-year-old male with past medical history of polysubstance abuse presented to the ED requesting detox and suicide ideation. He is admitted here for further care Polysubstance use/suicidal ideation Treatment per psychiatric team Thank you for allowing me to participate in the care of this patient. Will follow with you, please notify medical provider with any changes in condition or concerns.
[2024-11-21 09:09] LABS: Hemoglobin A1C 148.0770 umol/L; Total Hemoglobin (HGBA1C) 3992.9886 umol/L
[2024-11-21 09:17] LABS: Alanine Aminotransferase 18 U/L (0-40); Albumin Level 4.8 g/dL (3.5-5.0); Alkaline Phosphatase 44 U/L (39-117); Anion Gap 13 (12-20); Aspartate Amino Transferase 26 U/L (5-37); Blood Urea Nitrogen 17 mg/dL (9-16); Calcium 9.5 mg/dL (8.4-10.2); Carbon Dioxide 29 mmol/L (22-29); Chloride 105 mmol/L (96-108); Cholesterol 158 mg/dL (<200); Creatinine Clr Calc Pharmacy 67.1; Estimated Glomerular Filt Rate > 60; HDL Cholesterol 54 mg/dL (>40); Potassium 4.1 mmol/L (3.3-5.1); Sodium 143 mmol/L (135-145); Total Protein 7.4 g/dL (6.5-8.0); Triglycerides 67 mg/dL (<150)
[2024-11-21 09:33] LABS: Free T4 (Free Thyroxine) 0.92 ng/dL (0.71-1.85); Thyroid Stimulating Hormone 2.26 uIU/mL (0.32-4.0)
--- NOTE | 2024-11-21 10:39 | HO.PSYADMNOT ---
HPI Date of Service: 11/21/24 Chief Complaint: F32.9, F14.20 Sources of Information: patient interviewed, chart reviewed and crisis/core team assessment reviewed HPI Subjective Notes: [place] Warning and Conditional Voluntary Healthcare Proxy: No Guardianship: No Medical Problems Affecting Mental Status: No Narrative: 39 yo male, transfer from [facility]. Pt reported SI, substance use disorder and wanting detox from crack/cannabis last used shortly before ER presentation. Today, pt reports no adverse withdrawal symptoms. Reports primary substance is crack/cocaine, denies alcohol and affirms cannabis. Reports no prior treatment, this is the first intervention. States he chose current time as I am just so sick of it. It has made me terrible and I want to be a better person, family member and father. Reports interest in longer term addiction treatment and evaluation of mood when detox is further along. Pt offered several points of feedback for the processes he has participated in during the ER visit to [facility] and [facility]. Reports that he finds there is poor communication as he has been asked similiar questions twice and finds it irritating. You all need to get it together. Explained the benefit of asking similiar questions at different times however pt disagreed. Reports feeling irritable, yet denies detox symptoms. Baclofen ordered for pt as needed. Past Psychiatric History: IP: Denies OP: Denies SI: 2023, Suicide attempt 2023 via OD Fentanyl-no medical tx received. Medical Evaluation Reviewed: Yes [facility] Narrative: Denies Denies hx of seizure, TBI Social History: Born in [place]. To [place] at age 4. Parents . Pt has no contact with the person who raised him. Six siblings, Four children ages 17, 16, 8 and 4. They are in [place], [place] and [facility]. Denies current employment. Reports he is homeless, however has housing resources he can rely upon Substance History: Crack-cocaine Cannabis Denies any history of treatment Trauma History: Declines to answer this today Diagnostics Vital Signs (24Hr): Vital Signs - 24 hr 11/20/24 18:21 11/20/24 20:04 11/21/24 08:00 Temperature 98.8 F 98.2 F 97.9 F Pulse Rate 64 73 65 Respiratory Rate 18 18 18 Blood Pressure 123/91 H 135/83 131/74 Pulse Oximetry 99 99 99 Oxygen Delivery Method Room Air Room Air Room Air BMI result Body Mass Index 18.7 Labs 11/21/24 08:35 Labs: Laboratory Results - last 48 hr 11/21/24 08:35 Sodium 143 Potassium 4.1 Chloride 105 Carbon Dioxide 29 Anion Gap 13 BUN 17 H Creatinine 1.13 Estim Creat Clear Calc 67.1 Estimated GFR > 60 Random Glucose 91 Estimat Average Glucose 111 Hemoglobin A1c % 5.5 Calcium 9.5 Total Bilirubin 0.4 AST 26 ALT 18 Alkaline Phosphatase 44 Total Protein 7.4 Albumin 4.8 Triglycerides 67 Cholesterol 158 LDL Cholesterol, Calc 91 HDL Cholesterol 54 TSH 2.26 Free T4 0.92 Meds/Allergies Meds Home Medications ?Medication ?Instructions ?Recorded ?Confirmed ?Type No Known Home Meds 11/20/24 11/20/24 History Allergies Allergies Allergy/AdvReac Type Severity Reaction Status Date / Time No Known Allergies (No Known Allergy Unverified 10/24/19 17:23 Allergies*) Mental Status Exam Mental Status Exam Patient Appearance: Appropriate Patient Orientation: Person, Place, Time and Situation Level of Consciousness: Alert Patient Behavior: Guarded, Suspicious, Avoidant, Distractible and Poor Eye Contact Mood Description: Suspicious, Withdrawn, Constricted, Depressed and Hostile Affect Description: Constricted Patient Cognition Impaired: No Ability to Follow Directions: Fair Speech Pattern: Spontaneous Speech Memory Description: Intact Hallucinations: None (denies) Delusions: Not Present (denies) Thought Process: Distracted and Rumination Thought Content: positive for [place], positive for Circumstantial, positive for Goal Oriented, positive for Perseveration and positive for Suicidal Ideation (denies) Depressive Symptoms: Increased Irritability, Feelings of Guilt, Thoughts of /Suicide (denies) and Low Self Esteem Abnormal Motor Activity Signs and Symptoms: Agitation Judgement: Fair Assessment & Plan Assessment & Plan (1) Polysubstance abuse: Status: Acute Code(s): F19.10 - Other psychoactive substance abuse, uncomplicated (2) Suicidal ideation: Status: Acute Code(s): R45.851 - Suicidal ideations (3) Depression: Status: Acute Code(s): F32.A - Depression, unspecified Plan 39 yo male, transfer from [facility]. Pt reported SI, substance use disorder and wanting detox from crack/cannabis last used shortly before ER presentation. Today, pt reports no adverse withdrawal symptoms. Reports primary substance is crack/cocaine, denies alcohol and affirms cannabis. Reports no prior treatment, this is the first intervention. States he chose current time as I am just so sick of it. It has made me terrible and I want to be a better person, family member and father. Reports interest in longer term addiction treatment and evaluation of mood when detox is further along. Pt offered several points of feedback for the processes he has participated in during the ER visit to [facility] and [facility] admission. Reports that he finds there is poor communication as he has been asked similiar questions twice and finds it irritating. You all need to get it together. Explained the benefit of asking similiar questions at different times however pt disagreed. Reports feeling irritable, yet denies detox symptoms. Baclofen ordered for pt as needed. Plan: Admit, CV, 15 minute checks Detox-Baclofen Encourage full milieu Diagnostics as needed Discussion of mood sx, meds when pt feels ready Collateral contacts Addiction consult Discharge planning Patient educated on: diagnosis, medication risk/benefits, substance abuse and therapeutic strategies Informed Consent: understands Reason for continued inpatient stay Substantial Risk for: rapid decompensation Statement Statement: I have reviewed the history and physical and performed a pertinent examination on my patient. No changes have occurred unless specified. If the History and Physical was not performed prior to admission, the Hospitalist's service will be consulted for completing the admission physical. Time Spent With Patient Time: Total time managing care of this patient today ____ minutes.
[2024-11-21 20:00] VITALS: RESP 15
[2024-11-22 08:00] VITALS: RESP 15
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
[2024-11-22 20:44] VITALS: BP 142/89; PULSE 91; RESP 16; TEMP 37.2; O2SAT 100
[2024-11-23 08:14] VITALS: BP 138/79; PULSE 64; RESP 16; TEMP 36.6; O2SAT 100
--- NOTE | 2024-11-23 10:01 | P.PNPSI_ITS ---
Subjective Subjective Date of Service: 11/23/24 Reason For Visit: F32.9, F14.20 Interim History: Patient reports feeling ok today. He remains irritable. Little participation on the unit. However took a shower. Denies SI,HI,AH,VH. Not interested in medications for his mood. Denies withdrawals. Review of Systems Review of Systems withdrawal Mental Status Exam Mental Status Exam Patient Appearance: Appropriate Patient Orientation: Person, Place, Time and Situation Level of Consciousness: Alert Patient Behavior: Guarded, Suspicious, Avoidant, Distractible and Poor Eye Contact Mood Description: Suspicious, Withdrawn, Constricted, Depressed and Hostile Affect Description: Constricted Patient Cognition Impaired: No Ability to Follow Directions: Fair Speech Pattern: Spontaneous Speech Memory Description: Intact Diagnostics Vital Signs (24Hr): Vital Signs - 24 hr 11/22/24 20:44 11/23/24 08:14 Temperature 98.9 F 98 F Pulse Rate 91 64 Respiratory Rate 16 16 Blood Pressure 142/89 H 138/79 Pulse Oximetry 100 100 Oxygen Delivery Method Room Air Room Air BMI result Body Mass Index 18.7 Labs 11/21/24 08:35 Medications Medications Current Medications Acetaminophen (Acetaminophen 325 Mg Tablet) 650 mg PO Q6H PRN PRN Reason: Headache/Pain, Scale 1-10 Al Hydroxide/Mg Hydroxide (Magnesium Hydrox/Alum Hydrox 30 Ml Oral.Susp) 30 ml PO Q6H PRN PRN Reason: Heartburn/Nausea Baclofen (Baclofen 10 Mg Tablet) 10 mg PO TID RAJEEV Last Admin: 11/23/24 08:45 Dose: 10 mg Clonidine HCl (Clonidine Hcl 0.1 Mg Tablet) 0.1 mg PO Q4H PRN; Protocol PRN Reason: ANXIETY RELATED TANNER W/D Hydroxyzine HCl (Hydroxyzine Hcl 25 Mg Tablet) 25 mg PO Q6H PRN PRN Reason: mild anxiety Magnesium Hydroxide (Milk Of Magnesia 30 Ml Oral.Susp) 30 ml PO DAILY PRN PRN Reason: Constipation Nicotine (Nicotine 21 Mg Patch.Td24) 21 mg TRANSDERMA DAILY PRN PRN Reason: nicotine craving Nicotine Polacrilex (Nicotine Polacrilex 2 Mg Gum) 2 mg BUCCAL Q2H PRN PRN Reason: Nicotine Cravings Olanzapine (Olanzapine 5 Mg Tablet) 5 mg PO BID PRN PRN Reason: agitation Trazodone HCl (Trazodone Hcl 50 Mg Tablet) 50 mg PO BEDTIME MRX1 PRN PRN Reason: Insomnia Allergies Allergies Allergy/AdvReac Type Severity Reaction Status Date / Time No Known Allergies (No Known Allergy Unverified 10/24/19 17:23 Allergies*) Assessment & Plan Assessment & Plan (1) Polysubstance abuse: Status: Acute Code(s): F19.10 - Other psychoactive substance abuse, uncomplicated (2) Suicidal ideation: Status: Acute Code(s): R45.851 - Suicidal ideations (3) Depression: Status: Acute Code(s): F32.A - Depression, unspecified Plan 39 yo male, transfer from [facility]. Pt reported SI, substance use disorder and wanting detox from crack/cannabis last used shortly before ER presentation. Today, pt reports no adverse withdrawal symptoms. Reports primary substance is crack/cocaine, denies alcohol and affirms cannabis. Reports no prior treatment, this is the first intervention. States he chose current time as I am just so sick of it. It has made me terrible and I want to be a better person, family member and father. Reports interest in longer term addiction treatment and evaluation of mood when detox is further along. Pt offered several points of feedback for the processes he has participated in during the ER visit to [facility] and [facility] admission. Reports that he finds there is poor communication as he has been asked similiar questions twice and finds it irritating. You all need to get it together. Explained the benefit of asking similiar questions at different times however pt disagreed. Reports feeling irritable, yet denies detox symptoms. Baclofen ordered for pt as needed. 11/22: Continue current plan 11/23: continue current management and treatment plan. Plan: Admit, CV, 15 minute checks Detox-Baclofen Encourage full milieu Diagnostics as needed Discussion of mood sx, meds when pt feels ready Collateral contacts Addiction consult Discharge planning Reason for continued inpatient stay Substantial Risk for: harm to self, inability to function and rapid decompensation Time Spent With Patient Time: Total time managing care of this patient today ____ minutes.
[2024-11-23 19:56] VITALS: BP 138/86; PULSE 88; RESP 18; TEMP 36.9; O2SAT 95
[2024-11-24 08:00] VITALS: BP 123/67; PULSE 63; RESP 16; TEMP 36.9; O2SAT 100
--- NOTE | 2024-11-24 09:31 | HO.PSYCHPN ---
Subjective Subjective Date of Service: 11/24/24 Reason For Visit: F32.9, F14.20 Interim History: I think I have an STD Patient reports urethral discharge and dysuria when initiating micturition. He remains with some irritability. Some engagement with select peers. Denies SI,HI,AH,VH. Not interested in medications for his mood. Denies withdrawals. Review of Systems Review of Systems withdrawal Mental Status Exam Mental Status Exam Patient Appearance: Appropriate Patient Orientation: Person, Place, Time and Situation Level of Consciousness: Alert Patient Behavior: Guarded, Suspicious, Avoidant, Distractible and Poor Eye Contact Mood Description: Suspicious, Withdrawn, Constricted, Depressed and Hostile Affect Description: Constricted Patient Cognition Impaired: No Ability to Follow Directions: Fair Speech Pattern: Spontaneous Speech Memory Description: Intact Diagnostics Vital Signs (24Hr): Vital Signs - 24 hr 11/23/24 19:56 11/24/24 08:00 Temperature 98.4 F 98.4 F Pulse Rate 88 63 Respiratory Rate 18 16 Blood Pressure 138/86 123/67 Pulse Oximetry 95 100 Oxygen Delivery Method Room Air Room Air BMI result Body Mass Index 18.7 Labs 11/21/24 08:35 Medications Medications Current Medications Acetaminophen (Acetaminophen 325 Mg Tablet) 650 mg PO Q6H PRN PRN Reason: Headache/Pain, Scale 1-10 Al Hydroxide/Mg Hydroxide (Magnesium Hydrox/Alum Hydrox 30 Ml Oral.Susp) 30 ml PO Q6H PRN PRN Reason: Heartburn/Nausea Baclofen (Baclofen 10 Mg Tablet) 10 mg PO TID RAJEEV Last Admin: 11/24/24 08:27 Dose: Not Given Clonidine HCl (Clonidine Hcl 0.1 Mg Tablet) 0.1 mg PO Q4H PRN; Protocol PRN Reason: ANXIETY RELATED TANNER W/D Hydroxyzine HCl (Hydroxyzine Hcl 25 Mg Tablet) 25 mg PO Q6H PRN PRN Reason: mild anxiety Magnesium Hydroxide (Milk Of Magnesia 30 Ml Oral.Susp) 30 ml PO DAILY PRN PRN Reason: Constipation Nicotine (Nicotine 21 Mg Patch.Td24) 21 mg TRANSDERMA DAILY PRN PRN Reason: nicotine craving Nicotine Polacrilex (Nicotine Polacrilex 2 Mg Gum) 2 mg BUCCAL Q2H PRN PRN Reason: Nicotine Cravings Olanzapine (Olanzapine 5 Mg Tablet) 5 mg PO BID PRN PRN Reason: agitation Trazodone HCl (Trazodone Hcl 50 Mg Tablet) 50 mg PO BEDTIME MRX1 PRN PRN Reason: Insomnia Allergies Allergies Allergy/AdvReac Type Severity Reaction Status Date / Time No Known Allergies (No Known Allergy Unverified 10/24/19 17:23 Allergies*) Assessment & Plan Assessment & Plan (1) Polysubstance abuse: Status: Acute Code(s): F19.10 - Other psychoactive substance abuse, uncomplicated (2) Suicidal ideation: Status: Acute Code(s): R45.851 - Suicidal ideations (3) Depression: Status: Acute Code(s): F32.A - Depression, unspecified Plan 39 yo male, transfer from [facility]. Pt reported SI, substance use disorder and wanting detox from crack/cannabis last used shortly before ER presentation. Today, pt reports no adverse withdrawal symptoms. Reports primary substance is crack/cocaine, denies alcohol and affirms cannabis. Reports no prior treatment, this is the first intervention. States he chose current time as I am just so sick of it. It has made me terrible and I want to be a better person, family member and father. Reports interest in longer term addiction treatment and evaluation of mood when detox is further along. Pt offered several points of feedback for the processes he has participated in during the ER visit to [facility] and [facility] [place]. Reports that he finds there is poor communication as he has been asked similiar questions twice and finds it irritating. You all need to get it together. Explained the benefit of asking similiar questions at different times however pt disagreed. Reports feeling irritable, yet denies detox symptoms. Baclofen ordered for pt as needed. 11/22: Continue current plan 11/23: continue current management and treatment plan. 11/24: Urine for GC/Chlamydia. Otherwise continue current management and treatment plan. Plan: Admit, CV, 15 minute checks Detox-Baclofen Encourage full milieu Diagnostics as needed Discussion of mood sx, meds when pt feels ready Collateral contacts Addiction consult Discharge planning Reason for continued inpatient stay Substantial Risk for: inability to function and rapid decompensation Time Spent With Patient Time: Total time managing care of this patient today ____ minutes.
--- NOTE | 2024-11-24 15:09 | MHC.RECOVRN ---
TW met with pt to discuss current cocaine use and concerns related to increased risk of substance use related problems after consult received for cocaine use.? On approach pt was pleasant, calm, cooperative, and agreed to meet with the TW. Pt reports he is feeling ?OK, but catching up on sleep?. He denies experiencing withdrawal symptoms, pain, or other somatic complaints at this time. Pt does endorse moderate depression and anxiety. Pt reports he has been using cocaine, approximately ?an 8ball a day? for the past 8 years. Pt states he was primarily using it intranasally, however, about 8 months ago he was unable to obtain powdered cocaine and began to smoke crack with his current partner. Pt reports his partner uses crack cocaine daily. He states they live together ?off and on?.? Pt denies having been to treatment for substance use in the past but did report [facility] in [facility] months following drug and gun charges. He states during his incarceration he was prescribed suboxone 12mg, as he was previously using percocet and pressed pills purchased in the community. He also reports his toxicology report while incarceration only tested positive for fentanyl which he attributes to the pills he was purchasing in the community. He states he also tried to commit suicide in the past by sniffing 1 gram of fentanyl. Pt claims he was found and given three doses of Narcan. Pt reports daily marijuana use and occasional alcohol use, ?but that?s more of a social thing?? Pt spoke at length about wanting to remain drug free. ?I have too much to live for. I want a real life now. No more of the street stuff?. Pt expressed interest in recovery coaching, START program, and trialing topiramate for StUD. ?The baclofen doesn?t do much?. Provider and SW notified of pt request.? Pt identified that remaining in his current relationship may prove difficult if he decides to remain abstinent from substacnes while his partner continues to use. He states if she can't quit than we can't be together . Pt states he has been in communication with his partner who claims to have abstinent from cocaine for the past three days and intends to continue. Pt reports he has a best friend for over twenty years and identifies his friend as a good, quality support. He states his friend is abstinent from all substances and expresses a desire to reach out and seek his friends support.? Discussed how cocaine use has impacted health, including negative impact on mental health and overall physical wellbeing.? Discussed risk and reduction strategies including not mixing substances or sharing drug paraphernalia. Also provided education about the current drug supply and cutting agents used. Provided pt with written resources including information on inpatient and outpatient treatment, medications for StUD, harm reduction, recovery coaching, the START program and other pathways to recovery. Pt was provided with TW?s contact information if questions or concerns arise which he denies at this time. Tw available as needed for ongoing support and resources as needed.
[2024-11-24 15:43] LABS: CT PCR Urine NOT DETECTED (Not Detect.); NG PCR Urine DETECTED (Not Detect.)
[2024-11-24 20:00] VITALS: BP 156/78; PULSE 88; RESP 16; TEMP 37; O2SAT 100
[2024-11-25 08:18] VITALS: BP 124/63; PULSE 88; RESP 16; TEMP 36.9; O2SAT 100
--- NOTE | 2024-11-25 09:49 | P.PNPSI_ITS ---
Subjective Subjective Date of Service: 11/25/24 Reason For Visit: F32.9, F14.20 Subjective Notes: Conditional Voluntary Healthcare Proxy: No Guardianship: No Medical Problems Affecting Mental Status: No Interim History: Reports feeling improved as the weekend progressed. Completed baclofen use, per addiction recommendation initiated Topiramate which pt has tolerated thus far. Pt reports he is hopeful that he will be accepted to [facility]. Denies SI,HI, AH, VH. No sx of acute cristino or psychosis. Medication Compliance: Yes Side effects from medications: No Attending Groups: Intermittent Review of Systems Acute medical concerns: No Medical Review of Systems: unchanged Review of Systems Review of Systems Denies Mental Status Exam Mental Status Exam Patient Appearance: Appropriate Patient Orientation: Person, Place, Time and Situation Level of Consciousness: Alert Patient Behavior: Talkative and Good Eye Contact Mood Description: Constricted Affect Description: Constricted Patient Cognition Impaired: No Ability to Follow Directions: Good Speech Pattern: Spontaneous Speech Memory Description: Intact Hallucinations: None Delusions: Not Present Thought Process: Intact and Goal Oriented Thought Content: positive for Intact and positive for Goal Oriented Depressive Symptoms: Increased Anxiety and Thoughts of /Suicide (denies) Judgement: Fair Diagnostics Vital Signs (24Hr): Vital Signs - 24 hr 11/24/24 20:00 11/25/24 08:18 Temperature 98.6 F 98.4 F Pulse Rate 88 88 Respiratory Rate 16 16 Blood Pressure 156/78 H 124/63 Pulse Oximetry 100 100 Oxygen Delivery Method Room Air Room Air BMI result Body Mass Index 18.7 Labs 11/21/24 08:35 Labs: Laboratory Results - last 48 hr 11/24/24 12:44 Ur N gonorrhoeae DNA (PCR) DETECTED A Ur Chlamydia DNA (PCR) NOT DETECTED Medications Medications Current Medications Acetaminophen (Acetaminophen 325 Mg Tablet) 650 mg PO Q6H PRN PRN Reason: Headache/Pain, Scale 1-10 Al Hydroxide/Mg Hydroxide (Magnesium Hydrox/Alum Hydrox 30 Ml Oral.Susp) 30 ml PO Q6H PRN PRN Reason: Heartburn/Nausea Clonidine HCl (Clonidine Hcl 0.1 Mg Tablet) 0.1 mg PO Q4H PRN; Protocol PRN Reason: ANXIETY RELATED TANNER W/D Hydroxyzine HCl (Hydroxyzine Hcl 25 Mg Tablet) 25 mg PO Q6H PRN PRN Reason: mild anxiety Last Admin: 11/25/24 01:21 Dose: 25 mg Magnesium Hydroxide (Milk Of Magnesia 30 Ml Oral.Susp) 30 ml PO DAILY PRN PRN Reason: Constipation Nicotine (Nicotine 21 Mg Patch.Td24) 21 mg TRANSDERMA DAILY PRN PRN Reason: nicotine craving Nicotine Polacrilex (Nicotine Polacrilex 2 Mg Gum) 2 mg BUCCAL Q2H PRN PRN Reason: Nicotine Cravings Olanzapine (Olanzapine 5 Mg Tablet) 5 mg PO BID PRN PRN Reason: agitation Topiramate (Topiramate 25 Mg Tablet) 25 mg PO BID RAJEEV Trazodone HCl (Trazodone Hcl 50 Mg Tablet) 50 mg PO BEDTIME MRX1 PRN PRN Reason: Insomnia Last Admin: 11/25/24 01:21 Dose: 50 mg Allergies Allergies Allergy/AdvReac Type Severity Reaction Status Date / Time No Known Allergies (No Known Allergy Unverified 10/24/19 17:23 Allergies*) Assessment & Plan Assessment & Plan (1) Polysubstance abuse: Status: Acute Code(s): F19.10 - Other psychoactive substance abuse, uncomplicated (2) Suicidal ideation: Status: Acute Code(s): R45.851 - Suicidal ideations (3) Depression: Status: Acute Code(s): F32.A - Depression, unspecified Plan 39 yo male, transfer from [facility]. Pt reported SI, substance use disorder and wanting detox from crack/cannabis last used shortly before ER presentation. Today, pt reports no adverse withdrawal symptoms. Reports primary substance is crack/cocaine, denies alcohol and affirms cannabis. Reports no prior treatment, this is the first intervention. States he chose current time as I am just so sick of it. It has made me terrible and I want to be a better person, family member and father. Reports interest in longer term addiction treatment and evaluation of mood when detox is further along. Pt offered several points of feedback for the processes he has participated in during the ER visit to [facility] and [facility] [place]. Reports that he finds there is poor communication as he has been asked similiar questions twice and finds it irritating. You all need to get it together. Explained the benefit of asking similiar questions at different times however pt disagreed. Reports feeling irritable, yet denies detox symptoms. Baclofen ordered for pt as needed. 11/22: Continue current plan 11/23: continue current management and treatment plan. 11/24: Urine for GC/Chlamydia. Otherwise continue current management and treatment plan. 11/25: Continue tx Plan: Admit, CV, 15 minute checks Detox-Baclofen Encourage full milieu Diagnostics as needed Discussion of mood sx, meds when pt feels ready Collateral contacts Addiction consult Discharge planning Patient educated on: therapeutic strategies Informed Consent: understands Reason for continued inpatient stay Substantial Risk for: rapid decompensation Time Spent With Patient Time: Total time managing care of this patient today ____ minutes.
--- NOTE | 2024-11-25 15:07 | P.PNIM_ITS ---
Subjective Subjective Date of Service: 11/25/24 Interval History: Patient is seen for positive gonorrhea. He reports white penile discharge. Denies any fever or chills, denies any abdominal pain, denies any shortness of breath, chest pain or other concerning symptoms. Patient reports dysuria. Review of Systems Denies any shortness of breath, chest pain, headaches, dysuria, abdominal pain or discomfort, nausea, vomiting or diarrhea. Physical Exam 2 Exam: Exam: CONST: Alert and oriented, in NAD. Well nourished HEENT: Normocephalic, atraumatic, MMM, Eyes clear, Neck supple RESP: Lungs clear, RRR even and regular HEART:,RRR, S1, S2. No edema GI:Abdomen Soft NT, ND. + BS times four :Deferred SKIN: Warm dry and intact, no visible lesions or rashes NEURO:CN II-XII Intact bilaterally, Sensation intact. Speech clear PSYCH: Normal affect Vital Signs: Vital Signs: Last Vital Signs Temp 98.4 F 11/25/24 08:18 Pulse 88 11/25/24 08:18 Resp 16 11/25/24 08:18 BP 124/63 11/25/24 08:18 Pulse Ox 100 11/25/24 08:18 O2 Del Method Room Air 11/25/24 08:18 BMI result Body Mass Index 18.7 Objective Data Active Medications Acetaminophen (Acetaminophen 325 Mg Tablet) 650 mg PO Q6H PRN PRN Reason: Headache/Pain, Scale 1-10 Al Hydroxide/Mg Hydroxide (Magnesium Hydrox/Alum Hydrox 30 Ml Oral.Susp) 30 ml PO Q6H PRN PRN Reason: Heartburn/Nausea Clonidine HCl (Clonidine Hcl 0.1 Mg Tablet) 0.1 mg PO Q4H PRN; Protocol PRN Reason: ANXIETY RELATED TANNER W/D Hydroxyzine HCl (Hydroxyzine Hcl 25 Mg Tablet) 25 mg PO Q6H PRN PRN Reason: mild anxiety Last Admin: 11/25/24 01:21 Dose: 25 mg Documented By: BECKI Magnesium Hydroxide (Milk Of Magnesia 30 Ml Oral.Susp) 30 ml PO DAILY PRN PRN Reason: Constipation Nicotine (Nicotine 21 Mg Patch.Td24) 21 mg TRANSDERMA DAILY PRN PRN Reason: nicotine craving Nicotine Polacrilex (Nicotine Polacrilex 2 Mg Gum) 2 mg BUCCAL Q2H PRN PRN Reason: Nicotine Cravings Olanzapine (Olanzapine 5 Mg Tablet) 5 mg PO BID PRN PRN Reason: agitation Topiramate (Topiramate 25 Mg Tablet) 25 mg PO BID RAJEEV Last Admin: 11/25/24 12:16 Dose: 25 mg Documented By: RUBY Trazodone HCl (Trazodone Hcl 50 Mg Tablet) 50 mg PO BEDTIME MRX1 PRN PRN Reason: Insomnia Last Admin: 11/25/24 01:21 Dose: 50 mg Documented By: BECKI Labs 11/21/24 08:35 Labs: Laboratory Results - last 24 hr 11/24/24 12:44 Ur N gonorrhoeae DNA (PCR) DETECTED A Ur Chlamydia DNA (PCR) NOT DETECTED Assessment and Plan (1) Gonorrhea: Status: Acute Plan 39-year-old male with past medical history of polysubstance abuse presented to the ED requesting detox and suicide ideation. He is admitted here for further care Polysubstance use/suicidal ideation Treatment per psychiatric team Gonorrhea Treat with ceftriaxone 500 mg IM and Zithromax 1000 mgs times one Negative for chlamydia. Thank you for allowing me to participate in the care of this patient. Will follow with you, please notify medical provider with any changes in condition or concerns. Quality Stroke Does the patient have a stroke diagnosis?: No VTE Prior VTE?: No VTE Risk Level:: Medical - low VTE Device Contraindication: Treatment Not Indicated VTE Drug Contraindication: Treatment Not Indicated
[2024-11-25 20:00] VITALS: BP 123/70; PULSE 85; RESP 16; TEMP 36.2; O2SAT 100
[2024-11-26 08:21] VITALS: BP 148/71; PULSE 90; RESP 18; TEMP 36.4; O2SAT 100
--- NOTE | 2024-11-26 17:45 | P.PNPSI_ITS ---
Subjective Subjective Date of Service: 11/26/24 Reason For Visit: F32.9, F14.20 Subjective Notes: Conditional Voluntary Healthcare Proxy: No Guardianship: No Medical Problems Affecting Mental Status: No Interim History: Pt accepted with [facility] for ongoing treatment which he reports being agreeable to. Denies SI,HI,AH,VH Napping this afternoon. Denies current concerns. Prepared for transfer on 11/27. Medication Compliance: Yes Side effects from medications: No Attending Groups: Intermittent Review of Systems Acute medical concerns: No Medical Review of Systems: unchanged Review of Systems Review of Systems denies Mental Status Exam Mental Status Exam Patient Appearance: Appropriate Patient Orientation: Person, Place, Time and Situation Level of Consciousness: Alert Patient Behavior: Talkative and Good Eye Contact Mood Description: Constricted Affect Description: Constricted Patient Cognition Impaired: No Ability to Follow Directions: Good Speech Pattern: Spontaneous Speech Memory Description: Intact Hallucinations: None Delusions: Not Present Thought Process: Intact and Goal Oriented Thought Content: positive for Intact and positive for Goal Oriented Depressive Symptoms: Increased Anxiety and Thoughts of /Suicide (denies) Judgement: Fair Diagnostics Vital Signs (24Hr): Vital Signs - 24 hr 11/25/24 20:00 11/26/24 08:21 Temperature 97.2 F 97.5 F Pulse Rate 85 90 Respiratory Rate 16 18 Blood Pressure 123/70 148/71 H Pulse Oximetry 100 100 Oxygen Delivery Method Room Air Room Air BMI result Body Mass Index 18.7 Labs 11/21/24 08:35 Medications Medications Current Medications Acetaminophen (Acetaminophen 325 Mg Tablet) 650 mg PO Q6H PRN PRN Reason: Headache/Pain, Scale 1-10 Last Admin: 11/25/24 18:43 Dose: 650 mg Al Hydroxide/Mg Hydroxide (Magnesium Hydrox/Alum Hydrox 30 Ml Oral.Susp) 30 ml PO Q6H PRN PRN Reason: Heartburn/Nausea Clonidine HCl (Clonidine Hcl 0.1 Mg Tablet) 0.1 mg PO Q4H PRN; Protocol PRN Reason: ANXIETY RELATED TANNER W/D Hydroxyzine HCl (Hydroxyzine Hcl 25 Mg Tablet) 25 mg PO Q6H PRN PRN Reason: mild anxiety Last Admin: 11/25/24 23:36 Dose: 25 mg Magnesium Hydroxide (Milk Of Magnesia 30 Ml Oral.Susp) 30 ml PO DAILY PRN PRN Reason: Constipation Nicotine (Nicotine 21 Mg Patch.Td24) 21 mg TRANSDERMA DAILY PRN PRN Reason: nicotine craving Nicotine Polacrilex (Nicotine Polacrilex 2 Mg Gum) 2 mg BUCCAL Q2H PRN PRN Reason: Nicotine Cravings Olanzapine (Olanzapine 5 Mg Tablet) 5 mg PO BID PRN PRN Reason: agitation Topiramate (Topiramate 25 Mg Tablet) 25 mg PO BID RAJEEV Last Admin: 11/26/24 10:52 Dose: 25 mg Trazodone HCl (Trazodone Hcl 50 Mg Tablet) 50 mg PO BEDTIME MRX1 PRN PRN Reason: Insomnia Last Admin: 11/25/24 23:36 Dose: 50 mg Allergies Allergies Allergy/AdvReac Type Severity Reaction Status Date / Time No Known Allergies (No Known Allergy Unverified 10/24/19 17:23 Allergies*) Assessment & Plan Assessment & Plan (1) Polysubstance abuse: Status: Acute Code(s): F19.10 - Other psychoactive substance abuse, uncomplicated Assessment and Plan: 11/26: Pt accepted to [facility] for 11/27/24. Agrees with plan of care and reports feeling hopeful about attending the program (2) Depression: Status: Acute Code(s): F32.A - Depression, unspecified Plan 39-year-old male with past medical history of polysubstance abuse presented to the ED requesting detox and suicide ideation. He is admitted here for further care Polysubstance use/suicidal ideation Treatment per psychiatric team Gonorrhea Treat with ceftriaxone 500 mg IM and Zithromax 1000 mgs times one Negative for chlamydia. Thank you for allowing me to participate in the care of this patient. Will follow with you, please notify medical provider with any changes in condition or concerns. Reason for continued inpatient stay Substantial Risk for: stable for discharge Time Spent With Patient Time: Total time managing care of this patient today ____ minutes.
[2024-11-26 20:00] VITALS: BP 126/85; PULSE 93; RESP 18; TEMP 36.1; O2SAT 100
[2024-11-27 07:59] VITALS: BP 140/70; PULSE 96; RESP 18; TEMP 36.9; O2SAT 99
--- NOTE | 2024-11-27 09:16 | PM.PSYDC ---
DS: Providers Provider Date of Service: 11/27/24 Date of admission: 11/20/24 18:01 Date of discharge: 11/27/24 Primary care physician: Unknown Physician Admitting clinician: Vicki Elizabeth Attending physician on admission: Carson Matos Consults: 11/20/24 18:24 Consult to Hospitalist Routine Comment: Consulting Provider: [facility] [place] [facility] [place] [facility] Reason For Exam: New external Admit- H&P 11/21/24 16:51 Addiction Medicine Provider Routine Consulting Provider: Addiction Covering Reason for consultation: crack cocaine-first intervention Has provider been notified: No Attending physician on discharge: Carson Matos Discharging clinician: Vicki Elizabeth DS: Diagnosis Discharge Diagnosis (1) Polysubstance abuse: Status: Acute (2) Depression: Status: Acute DS: Medications Discharge Medications Home Medications: Previous Rx's ?Medication ?Instructions ?Recorded acetaminophen 325 mg tablet 650 mg (2 x 325 mg) PO Q6H PRN 11/26/24 Headache/Pain, Scale 1-10 #0 tabs hydroxyzine HCl 25 mg tablet 25 mg PO Q6H PRN mild anxiety #30 11/26/24 tabs topiramate 25 mg tablet 25 mg PO BID #60 tabs 11/26/24 trazodone 50 mg tablet 50 mg PO BEDTIME MRX1 PRN Insomnia 11/26/24 #60 tabs Mental Status Exam Mental Status Exam Patient Appearance: Appropriate Patient Orientation: Person, Place, Time and Situation Level of Consciousness: Alert Patient Behavior: Talkative and Good Eye Contact Mood Description: Constricted Affect Description: Constricted Patient Cognition Impaired: No Ability to Follow Directions: Good Speech Pattern: Spontaneous Speech Memory Description: Intact Hallucinations: None Delusions: Not Present Thought Process: Intact and Goal Oriented Thought Content: positive for Intact and positive for Goal Oriented Depressive Symptoms: Increased Anxiety and Thoughts of /Suicide (denies) Judgement: Fair Data Data Completed and Pending Completed studies during hospitalization [Text1]: 11/21/24 11/24/24 08:35 12:44 Sodium 143 Potassium 4.1 Chloride 105 Carbon Dioxide 29 Anion Gap 13 BUN 17 H Creatinine 1.13 Estim Creat Clear Calc 67.1 Estimated GFR > 60 Random Glucose 91 Estimat Average Glucose 111 Hemoglobin A1c % 5.5 Calcium 9.5 Total Bilirubin 0.4 AST 26 ALT 18 Alkaline Phosphatase 44 Total Protein 7.4 Albumin 4.8 Triglycerides 67 Cholesterol 158 LDL Cholesterol, Calc 91 HDL Cholesterol 54 TSH 2.26 Free T4 0.92 Ur N gonorrhoeae DNA (PCR) DETECTED A Ur Chlamydia DNA (PCR) NOT DETECTED DS: Summary Hospital Course Hospital Course: Admission to adult psychiatry for exacerbation of depression, polysubstance use disorder-cannabis and crack-cocaine. Pt identifies this as his first intervention. Medications were evaluated and adjusted. Detoxification was completed without complication. Addiction team consultation was completed and appreciated by pt. Pt/team applied for admission to [facility]. Pt was accepted and will continue his treatment with them. Status at Discharge Functional status at discharge: independent ambulation Overall status at discharge: patient is progressing back to baseline Time Spent with Patient Time attestation: Total time managing care of this patient today ____ minutes. Time spent: Less than 30 minutes Discharge Plan Discharge Anticipated Discharge Date/Time: 11/27/24 11:00 Patient Disposition: Xfer Inpatient Rehab Fac Discharge Diagnosis: Depression Polysubstance Use Disorder Referrals: Physician,Unknown J [Primary Care Provider, Medical] Referral Note: Because you did not sign a release of information for a primary care provider, we have not forwarded your records. If you would like the records of this hospitalization forwarded in the future please call and ask for the medical records department. Discharge Medications: New acetaminophen 325 mg Tablet 650 mg PO Q6H PRN (Reason: Headache/Pain, Scale 1-10) Qty: 0 0RF trazodone 50 mg Tablet 50 mg PO BEDTIME MRX1 PRN (Reason: Insomnia) Qty: 60 0RF topiramate 25 mg Tablet 25 mg PO BID Qty: 60 0RF hydroxyzine HCl 25 mg Tablet 25 mg PO Q6H PRN (Reason: mild anxiety) Qty: 30 0RF Discharge Orders: Discharge Order (Routine); Ordered 11/27/24 Ordered By: Vicki Elizabeth Diet: Advance to usual diet Activity on Discharge: As tolerated Stand Alone Forms: Patient Portal Discharge page, Community Support Print Language: Ukrainian Care Plan Goals: Abstinence from substances Mood and Behavioral Stabilization Health Concerns: Abstinence from substances Mood and Behavioral Stabilization Plan of Treatment: Transfer to [facility] Attend scheduled appointments Take medications as directed Assessment: Denies SI,HI, AH, VH No sx of acute psychosis or cristino Agrees with his plan of care. Discharge Date/Time: 11/27/24 12:21
== END 2024-11-27 12:21 | DRG 754 ==
PROVIDERS: Nurse Practitioner Psychiatric/Mental Health; Psychiatry & Neurology Psychiatry; Admitting Provider Psychiatry & Neurology Psychiatry; Visit Provider Psychiatry & Neurology Psychiatry
DX: F32.A Depression, unspecified (principal); R45.851 Suicidal ideations; F19.10 Other psychoactive substance abuse, uncomplicated; F17.210 Nicotine dependence, cigarettes, uncomplicated; Z71.6 Tobacco abuse counseling; Z79.899 Other long term (current) drug therapy
CPT/HCPCS: 36415; 80053; 80061; 83036; 84439; 84443; 87491; 87591; J0696

== ENCOUNTER → 2024-11-20 18:01 | Outpatient (BNV) | payer MEDICAID, SELFPAY | PROVIDERS: Admitting Provider Psychiatry & Neurology Psychiatry; Visit Provider Nurse Practitioner Family | DX: F19.10 Other psychoactive substance abuse, uncomplicated (principal) | CPT/HCPCS: 99231; 99499 ==

== ENCOUNTER → 2024-11-20 18:01 | Outpatient (BNV) | payer OTHER, SELFPAY | PROVIDERS: Admitting Provider Psychiatry & Neurology Psychiatry; Visit Provider Clinical Nurse Specialist Psychiatric/Mental Health, Adult | DX: F19.10 Other psychoactive substance abuse, uncomplicated (principal); R45.851 Suicidal ideations; F32.A Depression, unspecified | CPT/HCPCS: 99232 ==